=== PATIENT | male | born 1970 | race Caucasian/White ===

== ENCOUNTER 2022-06-25 00:17 | Day surgery (SDC) | payer OTHER, SELFPAY ==
[2022-06-11 13:11] VITALS: BMI 36.3
--- NOTE | 2022-06-22 13:31 | P.HP_ITS ---
History of Present Illness History of Present Illness Consent: Risks, benefits, and alternatives have been discussed and questions answered. Patient agrees to proceed with procedure. Chief complaint: neoplasm screening Narrative: Jett Salcedo is a 51 year old male referred for colon cancer screening. Review of Systems Review of Systems: All systems reviewed & are unremarkable except as noted in HPI and below PMFSH Past Medical History Medical History Diabetes HLD (hyperlipidemia) HTN (hypertension) Hypertriglyceridemia CRISTIAN (obstructive sleep apnea) Surgical History Surgical History H/O thumb surgery Family History Family History Father Hypertension Family history of diabetes mellitus in first degree relative Diabetes mellitus Mother Family history of diabetes mellitus in first degree relative Diabetes mellitus Hypertension Sibling Family history of diabetes mellitus in first degree relative Diabetes mellitus Depression Hypertension Grandparent Family history of malignant neoplasm of ovary Diabetes mellitus Other Family history of anemia Social History Social History Smoking status: Never smoker Second hand tobacco smoke exposure: No Alcohol intake: current Alcohol use details: on occasion Substance use: never Substance use type: does not use Living arrangements: with family 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 Gender identity (if verbalized by the patient): Male Spiritual care concerns: No Agree to blood products: Yes Meds Home Medications and Allergies Home Medications Medication Instructions Recorded Confirmed Type fenofibrate micronized 200 mg 200 mg PO DAILY #90 caps 10/02/21 06/25/22 Rx capsule dapagliflozin 10 mg tablet 10 mg PO DAILY #90 tabs 01/07/22 06/25/22 Rx (Farxiga) glimepiride 4 mg tablet 4 mg PO QAM #90 tabs 01/07/22 06/25/22 Rx lisinopril 10 mg tablet 10 mg PO DAILY #90 tabs 01/07/22 06/25/22 Rx icosapent ethyl 1 gram capsule 2 g PO BID #120 caps 04/16/22 06/25/22 Rx (Vascepa) Allergies Allergy/AdvReac Type Severity Reaction Status Date / Time No Known Allergies Allergy Verified 06/25/22 10:21 Exam Resp: Auscultation: clear to auscultation bilaterally Cardio: Rate: regular rate Rhythm: regular rhythm GI: GI Palp: Yes Soft to palpation and No Tenderness to palpation present (GI) Assessment and Plan Assessment and plan (1) Colon cancer screening: Code(s): Z12.11 - Encounter for screening for malignant neoplasm of colon Status: Acute Assessment and Plan: Colonoscopy with possible biopsy or polypectomy or cautery or injection of substances.
[2022-06-25 10:23] VITALS: BP 119/90; PULSE 75; RESP 18; TEMP 36.4; O2SAT 97; BMI 35.6
[2022-06-25] MEDS: LACTATED RINGERS 1,000 ML 150 ML IV CONT (10:39)
[2022-06-25 10:41] LABS: Glucose Point of Care 241 mg/dl (65-105)
--- NOTE | 2022-06-25 10:41 | SUR.PREOP ---
Notified Dr. Barrientos of blood sugar of 241
--- NOTE | 2022-06-25 11:03 | WPDANESEPPF ---
Anes - Initial Pre Proc Eval Procedure: Operation Date: 06/25/22 11:30 Proposed Procedures p Screening Colonoscopy - Jasper Webber MD Date/Time: 06/25/22 11:03 Surgeon: Jasper Webber MD Pre Op Diagnosis: neoplasm screening Patient Data Age: 51 Gender: M Height: 1.78 m Weight: 112.7 kg Last Vital Signs Temp 97.6 F 06/25/22 10:23 Pulse 75 06/25/22 10:23 Resp 18 06/25/22 10:23 BP 119/90 06/25/22 10:23 Pulse Ox 97 06/25/22 10:23 O2 Del Method Room Air 06/25/22 10:23 Allergies Allergy/AdvReac Type Severity Reaction Status Date / Time No Known Allergies Allergy Verified 06/25/22 10:21 Home Medications Medication Instructions Recorded Confirmed Type fenofibrate micronized 200 mg 200 mg PO DAILY #90 caps 10/02/21 06/25/22 Rx capsule dapagliflozin 10 mg tablet 10 mg PO DAILY #90 tabs 01/07/22 06/25/22 Rx (Farxiga) glimepiride 4 mg tablet 4 mg PO QAM #90 tabs 01/07/22 06/25/22 Rx lisinopril 10 mg tablet 10 mg PO DAILY #90 tabs 01/07/22 06/25/22 Rx icosapent ethyl 1 gram capsule 2 g PO BID #120 caps 04/16/22 06/25/22 Rx (Vascepa) Laboratory Tests 06/25/22 10:37 POC Capillary Glucose 241 mg/dl H mg/dl (65-105) Patient hx anesthesia problems: none Family hx anesthesia problems: none Results Review: All pre-operative results and documents have been reviewed as part of the pre-operative evaluation. [facility] Past Medical History Medical History Diabetes HLD (hyperlipidemia) HTN (hypertension) Hypertriglyceridemia CRISTIAN (obstructive sleep apnea) Surgical History Surgical History H/O thumb surgery Family History Family History Father Hypertension Family history of diabetes mellitus in first degree relative Diabetes mellitus Mother Family history of diabetes mellitus in first degree relative Diabetes mellitus Hypertension Sibling Family history of diabetes mellitus in first degree relative Diabetes mellitus Depression Hypertension Grandparent Family history of malignant neoplasm of ovary Diabetes mellitus Other Family history of anemia Social History Social History Smoking status: Never smoker Second hand tobacco smoke exposure: No Alcohol intake: current Alcohol use details: on occasion Substance use: never Substance use type: does not use Living arrangements: with family 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 Informed Consent: The patient's anesthetic plan and its attendant risks and benefits were discussed with the patient/family/POA. Questions were solicited and answers provided to the satisfaction of the patient/family/POA.
[2022-06-25 11:39] VITALS: BP 129/90; PULSE 72; RESP 24; O2SAT 96
[2022-06-25 11:49] VITALS: BP 128/90; PULSE 69; RESP 23; O2SAT 96
[2022-06-25 11:59] VITALS: BP 130/88; PULSE 71; RESP 21; O2SAT 95
== END 2022-06-25 12:10 | disposition home or self-care (01) ==
PROVIDERS: PCP Family Medicine; Visit Provider Internal Medicine Gastroenterology
PROC: 0DJD8ZZ Inspection of Lower Intestinal Tract, Via Natural or Artificial Opening Endoscopic (ICD-10-PCS; CPT 45378; principal; 2022-06-25 11:30)
DX: Z12.11 Encounter for screening for malignant neoplasm of colon (principal); I10 Essential (primary) hypertension; E78.5 Hyperlipidemia, unspecified; E11.9 Type 2 diabetes mellitus without complications; G47.33 Obstructive sleep apnea (adult) (pediatric); Z79.84 Long term (current) use of oral hypoglycemic drugs; E66.9 Obesity, unspecified; Z68.35 Body mass index [BMI] 35.0-35.9, adult
CPT/HCPCS: 45378; 82948; J2704; J7120

== ENCOUNTER 2022-09-19 08:19 | Outpatient (CLI) | payer OTHER, SELFPAY | END 2022-09-19 08:20 | disposition home or self-care (01) | PROVIDERS: PCP Family Medicine; Visit Provider Family Medicine | DX: H90.3 Sensorineural hearing loss, bilateral (principal) | CPT/HCPCS: 92557; 92567 ==